=== PATIENT | female | born 1950 | race Caucasian/White ===

== ENCOUNTER 2017-02-05 10:47 | Emergency (ER) | payer MEDICARE, MEDICAID ==
[~2017-02-05] VITALS: Ht 142.2 cm; Wt 81.8 kg
[2017-02-05] MEDS ORDERED: ALLO100T PO (10:53)
[2017-02-05] MEDS ORDERED: INSU100C14 SQ (10:53)
[2017-02-05] MEDS ORDERED: INSLAN SQ (10:53)
[2017-02-05] MEDS ORDERED: LOSA25TA21 PO (10:53)
[2017-02-05] MEDS ORDERED: ESZO2 PO (10:53)
[2017-02-05] MEDS ORDERED: METO25 PO (10:53)
[2017-02-05 10:56] LABS: GLUCOSE,POINT OF CARE 169 MG/DL (70-110)
[2017-02-05] MEDS ORDERED: IBUPROFEN 800 MG TABLET PO ONE (12:30)
[2017-02-05 13:46] VITALS: BP 132/78
== END 2017-02-05 13:47 | disposition home or self-care (01) ==
LOC: EMS 10:49
DX: S82.65XA Nondisplaced fracture of lateral malleolus of left fibula, initial encounter for closed fracture (principal); E11.9 Type 2 diabetes mellitus without complications; I10 Essential (primary) hypertension; X58.XXXA Exposure to other specified factors, initial encounter; Y93.89 Activity, other specified; Y92.89 Other specified places as the place of occurrence of the external cause; Y99.8 Other external cause status
CPT/HCPCS: 29515; 82962; 99284

== ENCOUNTER 2025-04-24 14:51 | Emergency (ER) | payer OTHER ==
[~2025-04-24] VITALS: Ht 154.9 cm; Wt 73.5 kg
[~2025-04-24 14:51] MED LIST: ALLO-97 PO; ESZO2TAB46 PO; INSLAN SQ; INSU100C14 SQ; LOSA-381 PO; METO25 PO
[2025-04-24] MEDS ORDERED: IOHEXOL 350 MG/ML 100 ML VIAL ONE (14:59)
[2025-04-24 15:00] VITALS: PULSE 86; RESP 16; RESP 22; O2SAT 100; O2SAT 99
[2025-04-24 15:11] LABS: PLATELET COUNT (AUTO) 326 K/uL (150-450); RED BLOOD CELL COUNT(AUTO) 5.55 MIL/uL (4.00-5.20); RED CELL DISTRIBUTION WIDTH 14.4 % (11.5-14.5); WHITE BLOOD COUNT (AUTO) 12.5 K/uL (4.5-11.0)
[2025-04-24 15:19] LABS: CALCIUM, TOTAL 9.3 mg/dL (8.8-10.5); CREATININE 1.04 mg/dL (0.60-1.30); GLOMERULAR FILTR. RATE CALC 52.0 mL/min (>60); GLUCOSE,RANDOM 186.0 mg/dL (70-110); SODIUM SERUM 137.0 mmol/L (136-145); UREA NITROGEN, BLOOD 15.0 mg/dL (7-18)
[2025-04-24 15:23] LABS: ASPARTATE AMINOTRANSFERASE 20.0 U/L (15-37); CHOL/HDL RATIO 2.3 (3.9-5.7); LDL CHOL (CALC.) 53.0 mg/dL (0-130); TOTAL PROTEIN, SERUM 8.5 g/dL (6.4-8.2)
[2025-04-24] MEDS: ETOMIDATE 2 MG/ML 10 ML VIAL IVP ONE (15:44)
[2025-04-24] MEDS: PROPOFOL 1000 MG/ISO-OSM 100 ML IV PRN (15:45)
[2025-04-24] MEDS: ROCURONIUM BROMIDE 10 MG/ML 5 ML VIAL IVP ONE (15:45)
[2025-04-24 15:53] LABS: TROPONIN I-HIGH SENSITIVITY 8 ng/L (<51)
[2025-04-24 16:05] LABS: APPEARANCE,URINE CLEAR (CLEAR); GLUCOSE, URINE (UA) >=1000 mg/dL (NEGATIVE); LEUKOCYTE ESTERASE ,URINE NEGATIVE (NEGATIVE); NITRATE,URINE NEGATIVE (NEGATIVE); OCCULT BLOOD,URINE NEGATIVE (NEGATIVE); PH,URINE DRUG SCREEN 8.0 (5.0-8.0); SPECIFIC GRAVITIY, URINE 1.017 (1.003-1.030)
[2025-04-24 16:12] LABS: AMPHET/METH SCREEN,URINE NEGATIVE (NEGATIVE); BARBITURATE SCREEN, URINE NEGATIVE (NEGATIVE); CANNABINOID SCREEN,URINE NEGATIVE (NEGATIVE); COCAINE SCREEN,URINE NEGATIVE (NEGATIVE); METHADONE SCREEN, URINE NEGATIVE (NEGATIVE)
[2025-04-24] MEDS: LevETIRAcetam 1,000 MG in DEXTROSE 5%-WATER 100 ML IV ONE (16:19)
[2025-04-24 16:20] LABS: ALCOHOL, URINE DRUG SCREEN NEGATIVE (NEGATIVE)
[2025-04-24 16:23] LABS: SULFOSALICYLIC ACID,URINE 1+ (Negative)
[2025-04-24] MEDS: POTASSIUM CHL 10 MEQ/WATER 50 ML IV ONE (17:14)
[2025-04-24 18:01] VITALS: BP 122/67; PULSE 74; RESP 22; TEMP 96.6; O2SAT 100
== END 2025-04-24 17:47 | disposition short-term general hospital (02) ==
LOC: EMS 14:51
DX: S06.6X0A Traumatic subarachnoid hemorrhage without loss of consciousness, initial encounter (principal); R53.1 Weakness; E87.6 Hypokalemia; E11.9 Type 2 diabetes mellitus without complications; I10 Essential (primary) hypertension; M10.9 Gout, unspecified; Z79.4 Long term (current) use of insulin; Z90.49 Acquired absence of other specified parts of digestive tract; Z79.899 Other long term (current) drug therapy; X58.XXXA Exposure to other specified factors, initial encounter; Y93.89 Activity, other specified; Y92.89 Other specified places as the place of occurrence of the external cause; Y99.8 Other external cause status
CPT/HCPCS: 99291; 70496; 31500; 96365; 71045; 96367; 96375; 80061; 80053; 81001; 83036; 84484; 85025; 85610; 85730; 86850; 86900; 86901; 36415; 70498; 82962; 93005; 80307; 70450; J0712; Q9967; J3490; J7060; J3480; J7050; 81002; 82948; 94002